=== PATIENT | male | born 1950 | race Caucasian/White ===

== ENCOUNTER → 2024-01-09 07:48 | Outpatient (REF) | payer MEDICARE, BC, SELFPAY ==
[2024-01-09 10:47] LABS: Magnesium 1.9 mg/dl (1.6-2.3)
[2024-01-09 11:15] LABS: TSH Reflex To Free T4 1.58 uIU/ml (0.47-4.68)
== END ==
LOC: HWLAB 07:48
PROVIDERS: ATTENDING PHYSICIAN Internal Medicine
DX: I48.91 Unspecified atrial fibrillation (principal)
CPT/HCPCS: 36415; 83735; 84443

== ENCOUNTER → 2024-01-29 10:13 | Outpatient (REF) | payer MEDICARE, BC, SELFPAY | LOC: HWRCS 10:13 | PROVIDERS: ATTENDING PHYSICIAN Internal Medicine Cardiovascular Disease; FAMILY PHYSICIAN Internal Medicine | DX: I48.0 Paroxysmal atrial fibrillation (principal) | CPT/HCPCS: 93306 ==

== ENCOUNTER → 2024-02-03 13:25 | Outpatient (REF) | payer MEDICARE, BC, SELFPAY | LOC: DHSLP 13:25 | PROVIDERS: ATTENDING PHYSICIAN Internal Medicine Cardiovascular Disease; FAMILY PHYSICIAN Internal Medicine | DX: G47.33 Obstructive sleep apnea (adult) (pediatric) (principal); G47.61 Periodic limb movement disorder | CPT/HCPCS: 95810 ==

== ENCOUNTER → 2024-02-21 08:04 | Outpatient (REF) | payer MEDICARE, BC, SELFPAY ==
[2024-02-21 09:33] LABS: % Basophils 0.7 % (0-2); % Eosinophils 6.6 % (0-6); % Immature Granulocytes 0.5 % (0-0.5); % Lymphocytes 15.2 % (20.5-51.1); % Monocytes 8.6 % (1.7-9.3); % Neutrophils 68.4 % (42.2-75.2); Absolute Basophils 0.1 10^3/uL (0-0.2); Absolute Eosinophils 0.6 10^3/uL (0-0.7); Absolute Lymphocytes 1.3 10^3/uL (1.2-3.4); Absolute Monocytes 0.7 10^3/uL (0.1-0.6); Absolute Neutrophils 5.8 10^3/uL (1.4-6.5); Hematocrit 42.4 % (39.0-52.0); Hemoglobin 14.9 g/dL (13.0-18.0); Mean Corp Hgb Conc. 35.1 g/dL (33.0-37.0); Mean Corpuscular Volume 85.3 fL (80.0-94.0); Mean Platelet Volume 10.5 fL (7.4-10.4); Nucleated Red Blood Cells % 0 % (-); Platelet Count 184 10^3/uL (130-400); Red Blood Cell Count 4.97 10^6/uL (4.70-6.10); Red Cell Dist. Width 12.4 % (11.5-14.5); White Blood Cell Count 8.4 10^3/uL (4.8-10.8)
[2024-02-21 09:39] LABS: Blood Urea Nitrogen 18 mg/dl (9-20); Carbon Dioxide 27 mmol/L (22-30); Chloride 104 mmol/L (98-107); Glucose 104 mg/dl (70-99); Potassium 4.5 mmol/L (3.5-5.1); Sodium 140 mmol/L (135-145); eGFR > 60.00
[2024-02-21 10:09] LABS: PSA, Total - Screen 4.84 ng/ml (0.0-4.0)
[2024-02-21 10:14] LABS: Erythrocyte Sed Rate 16 mm/hour (0-20)
== END ==
LOC: HWLAB 08:04
PROVIDERS: ATTENDING PHYSICIAN Internal Medicine Cardiovascular Disease; FAMILY PHYSICIAN Internal Medicine; REFERRING PHYSICIAN Specialist
DX: I47.19 Other supraventricular tachycardia (principal); I48.0 Paroxysmal atrial fibrillation; I10 Essential (primary) hypertension; E78.5 Hyperlipidemia, unspecified; Z12.5 Encounter for screening for malignant neoplasm of prostate
CPT/HCPCS: 36415; 80048; 85025; 85652; G0103

== ENCOUNTER → 2024-03-25 08:37 | Day surgery (SDC) | payer MEDICARE, BC, SELFPAY ==
--- NOTE | 2024-03-25 11:39 | ITS.CL.CARDI ---
Business Objects Developer - Cardioversion
Cardioversion
Procedure Report:
Date of Procedure: 03/25/24.
Procedure: Cardioversion.
Indication: Symptomatic atrial fibrillation.
Performing Physician: Mikayla Gunn MD
Technique: The patient was brought to the holding area. Signed informed consent was obtained. A time out was called and performed. The patient was sedated by a member of the anesthesia service. Anticoagulation status was reviewed and was
appropriate. R-2 pads were placed anteriorly and posteriorly. A 200 J synchronized biphasic shock restored normal sinus rhythm without significant bradycardia. There were no complications.
Conclusion: Uncomplicated cardioversion from atrial fibrillation to sinus rhythm.
Recommendation: Routine post cardioversion care. Continue press tender long goods anticoagulation.
cc: Dr. Barrios
== END ==
LOC: CATH 08:37
PROVIDERS: ATTENDING PHYSICIAN Internal Medicine Cardiovascular Disease; FAMILY PHYSICIAN Internal Medicine; OTHER PHYSICIAN Internal Medicine Cardiovascular Disease
DX: I48.91 Unspecified atrial fibrillation (principal); I49.1 Atrial premature depolarization; G47.33 Obstructive sleep apnea (adult) (pediatric); J45.909 Unspecified asthma, uncomplicated; Z79.01 Long term (current) use of anticoagulants
CPT/HCPCS: 92960; 93005

== ENCOUNTER → 2024-07-14 10:50 | Outpatient (REF) | payer MEDICARE, BC, SELFPAY ==
[2024-07-14 12:47] LABS: % Basophils 0.6 % (0-2); % Eosinophils 4.5 % (0-6); % Immature Granulocytes 0.3 % (0-0.5); % Lymphocytes 17.7 % (20.5-51.1); % Monocytes 8.5 % (1.7-9.3); % Neutrophils 68.4 % (42.2-75.2); Absolute Eosinophils 0.3 10^3/uL (0-0.7); Absolute Lymphocytes 1.1 10^3/uL (1.2-3.4); Absolute Monocytes 0.5 10^3/uL (0.1-0.6); Absolute Neutrophils 4.3 10^3/uL (1.4-6.5); Hematocrit 42.8 % (39.0-52.0); Hemoglobin 14.4 g/dL (13.0-18.0); Mean Corp Hgb Conc. 33.6 g/dL (33.0-37.0); Mean Corpuscular Hgb 29.8 pg (27.0-31.0); Mean Corpuscular Volume 88.4 fL (80.0-94.0); Mean Platelet Volume 11.3 fL (7.4-10.4); Nucleated Red Blood Cells % 0 % (-); Platelet Count 147 10^3/uL (130-400); Red Blood Cell Count 4.84 10^6/uL (4.70-6.10); White Blood Cell Count 6.3 10^3/uL (4.8-10.8)
[2024-07-14 13:12] LABS: Uric Acid 5.9 mg/dl (3.5-8.5)
[2024-07-14 13:39] LABS: Erythrocyte Sed Rate 8 mm/hour (0-20)
[2024-07-15 15:02] LABS: Lyme Antibody Screen, EIA Negative (Negative); Rheumatoid Agglutinin Less Than 10 IU (<10 IU)
[2024-07-16 20:20] LABS: ANA, IgG Reflex to HEp-2 None Detected (None Detected)
[2024-07-16 21:10] LABS: CCP Antibody IgG/IgA 2 Units (0-19)
== END ==
LOC: HWRAD 10:50
PROVIDERS: ATTENDING PHYSICIAN Internal Medicine
DX: M79.641 Pain in right hand (principal); M79.642 Pain in left hand; M25.60 Stiffness of unspecified joint, not elsewhere classified
CPT/HCPCS: 36415; 73130; 84550; 85025; 85652; 86038; 86140; 86200; 86430; 86618

== ENCOUNTER → 2024-08-28 08:26 | Outpatient (REF) | payer MEDICARE, BC, SELFPAY ==
[2024-08-28 10:56] LABS: PSA, Total - Diagnostic 3.71 ng/ml (0.0-4.0)
== END ==
LOC: HWLAB 08:26
PROVIDERS: ATTENDING PHYSICIAN Specialist; FAMILY PHYSICIAN Internal Medicine
DX: R97.20 Elevated prostate specific antigen [PSA] (principal)
CPT/HCPCS: 84153

== ENCOUNTER 2024-12-02 08:55 | Day surgery (SDC) | payer MEDICARE, BC, SELFPAY | END 2024-12-02 11:50 | disposition home or self-care (01) | LOC: CATH 08:55 | PROVIDERS: ATTENDING PHYSICIAN Internal Medicine Cardiovascular Disease; FAMILY PHYSICIAN Internal Medicine; OTHER PHYSICIAN Internal Medicine Cardiovascular Disease | DX: I48.0 Paroxysmal atrial fibrillation (principal); I47.19 Other supraventricular tachycardia; I10 Essential (primary) hypertension; E78.5 Hyperlipidemia, unspecified; Z86.73 Personal history of transient ischemic attack (TIA), and cerebral infarction without residual deficits; Z85.828 Personal history of other malignant neoplasm of skin; Z79.01 Long term (current) use of anticoagulants | CPT/HCPCS: 92960; 93005 ==

== ENCOUNTER → 2024-12-04 08:05 | Outpatient (REF) | payer MEDICARE, BC, SELFPAY ==
[2024-12-04 10:08] LABS: Hematocrit 41.3 % (39.0-52.0); Hemoglobin 13.7 g/dL (13.0-18.0); Mean Corp Hgb Conc. 33.2 g/dL (33.0-37.0); Mean Corpuscular Volume 90.0 fL (80.0-94.0); Nucleated Red Blood Cells % 0 % (-); Platelet Count 167 10^3/uL (130-400); Red Cell Dist. Width 12.3 % (11.5-14.5)
[2024-12-04 10:19] LABS: ALT (SGPT) 19 U/L (0-50); AST (SGOT) 27 U/L (17-59); Albumin 4.2 g/dl (3.5-5.0); Alkaline Phosphatase 75 U/L (38-126); Blood Urea Nitrogen 16 mg/dl (9-20); Calcium 8.7 mg/dl (8.4-10.2); Carbon Dioxide 27 mmol/L (22-30); Chloride 105 mmol/L (98-107); Glucose 95 mg/dl (70-99); Potassium 4.7 mmol/L (3.5-5.1); Sodium 139 mmol/L (135-145); Total Protein 6.8 g/dl (6.3-8.2); eGFR > 60.00
[2024-12-04 10:21] LABS: C-Reactive Protein 11.40 mg/L (0.0-10.00)
[2024-12-04 10:47] LABS: Hepatitis B Surface Antigen Negative (Negative)
[2024-12-04 11:05] LABS: Hepatitis C Antibody Negative (Negative)
== END ==
LOC: HWLAB 08:05
PROVIDERS: ATTENDING PHYSICIAN Student in an Organized Health Care Education/Training Program; FAMILY PHYSICIAN Internal Medicine
DX: M11.20 Other chondrocalcinosis, unspecified site (principal); M25.60 Stiffness of unspecified joint, not elsewhere classified; M79.89 Other specified soft tissue disorders; R79.82 Elevated C-reactive protein (CRP); Z11.1 Encounter for screening for respiratory tuberculosis; Z11.59 Encounter for screening for other viral diseases
CPT/HCPCS: 36415; 80053; 85025; 85652; 86140; 86480; 86704; 86705; 86803; 87340

== ENCOUNTER → 2025-01-04 11:46 | Outpatient (REF) | payer MEDICARE, BC, SELFPAY ==
[2025-01-06 22:51] LABS: HBV Quant by NAAT IU/mL Not Detected; HBV Quant by NAAT Interp Not Detected (Not Detected); HBV Quant by NAAT Log IU/mL Not Detected log IU/mL
== END ==
LOC: HWLAB 11:46
PROVIDERS: ATTENDING PHYSICIAN Student in an Organized Health Care Education/Training Program; FAMILY PHYSICIAN Internal Medicine
DX: B18.1 Chronic viral hepatitis B without delta-agent (principal)
CPT/HCPCS: 36415; 86706; 87517

== ENCOUNTER → 2025-01-06 12:57 | Outpatient (REF) | payer MEDICARE, BC, SELFPAY ==
[2025-01-06 13:34] LABS: Hematocrit 41.9 % (39.0-52.0); Hemoglobin 13.7 g/dL (13.0-18.0); Mean Corp Hgb Conc. 32.7 g/dL (33.0-37.0); Mean Corpuscular Volume 88.8 fL (80.0-94.0); Nucleated Red Blood Cells % 0 % (-); Platelet Count 145 10^3/uL (130-400); Red Cell Dist. Width 12.8 % (11.5-14.5)
[2025-01-06 13:44] LABS: INR 1.07; PT 14.4 Sec (11.4-14.6)
[2025-01-06 13:50] LABS: ALT (SGPT) 23 U/L (0-50); AST (SGOT) 22 U/L (17-59); Albumin 4.2 g/dl (3.5-5.0); Alkaline Phosphatase 75 U/L (38-126); Blood Urea Nitrogen 14 mg/dl (9-20); Calcium 8.9 mg/dl (8.4-10.2); Carbon Dioxide 32 mmol/L (22-30); Chloride 102 mmol/L (98-107); Glucose 109 mg/dl (70-99); Magnesium 1.8 mg/dl (1.6-2.3); Potassium 3.9 mmol/L (3.5-5.1); Sodium 139 mmol/L (135-145); Total Protein 6.9 g/dl (6.3-8.2); eGFR > 60.00
== END ==
LOC: SDSPAT 12:57
PROVIDERS: ATTENDING PHYSICIAN Internal Medicine Cardiovascular Disease; FAMILY PHYSICIAN Internal Medicine
DX: I48.0 Paroxysmal atrial fibrillation (principal)
CPT/HCPCS: 36415; 75572; 80053; 83735; 85025; 85610; 86850; 86900; 86901; 93005; Q9967

== ENCOUNTER 2025-01-28 06:09 | Day surgery (SDC) | payer MEDICARE, BC, SELFPAY ==
[2025-01-06 13:28] VITALS: BMI 29.9
[2025-01-28] VITALS (10 sets, daily range): BP systolic 140–180; BP diastolic 78–108; BMI 29.7
[2025-01-28] MEDS: TYLENOL 1000 MG PO (07:24)
[2025-01-28 08:46] LABS: ACT-LR - POC 377 Seconds (116-155)
[2025-01-28 09:05] LABS: ACT-LR - POC 319 Seconds (116-155)
[2025-01-28 09:32] LABS: ACT-LR - POC 313 Seconds (116-155)
[2025-01-28] MEDS: ZESTRIL 5 MG PO (10:48)
--- NOTE | 2025-01-28 12:00 | ITS.CL.ABL ---
Examination Grader - Ablation
Ablation
Procedure Report:
ELECTROPHYSIOLOGIC STUDY AND POSSIBLE ABLATION
DATE: January 28, 2025
Primary Care Provider: Dr Stormy Richardson
INDICATION:
Symptomatic Atrial Fibrillation and atrial tachycardia/flutter.
Persistent
HISTORY: See H and P.
Symptomatic AF, poorly controlled with attempted medical therapy
HAS-BLED: 2
Age
h/o CVA
CHADSVASc: 4
HTN
Age
CVA
h/o Stroke
PRESENTING RHYTHM: AF
HISTORY: See H and P.
Symptomatic AF, poorly controlled with attempted medical therapy.
ANTICOAGULATION: Apixaban 5 mg twice daily
'TIME-OUT': called and confirmed.
SEDATION/ANESTHESIA: provided via the anesthesia department using general anesthesia.
PROCEDURE:
Ultrasound Guidance with real-time visualization of needle insertion and vessel patency performed by de for femoral venous Vascular Access.
Under real-time US guidance, the needle was advanced with negative pressure into the vein. The needle was seen entering the vessel lumen with a good return of dark red flow, the syringe was removed, non-pulsatile, dark red blood low was noted and
the wire was passed without difficulty, then the needle was removed. US confirmed the wire was in the vein, not going into an artery,
Images were taken and saved for the patient's permanent record. Imaging findings typical femoral venous anatomy. Direct visualization of needle puncture into the femoral vein was observed and recorded.
3 sheaths were inserted into the right femoral vein.
10 Fr, 10Fr, 7 Fr a 10fr sheath was then exchanged for the 16.8 Fr Faradrive deflectable sheath and dilator over a wire.
A decapolar CS catheter was positioned within the CS for mapping and pacing.
The intracardiac ultrasound catheter was positioned in the RA for continuous intracardiac ultrasound imaging.
Heparin bolus and infusion to target ACT at 300 -350 seconds was administered. Transseptal puncture was performed. This entailed advancing a sheath with dilator into the superior vena cava and withdrawing both (monitoring intracardiac ultrasound,
fluoroscopy and tip pressure) with the tip oriented toward the atrial septum. The fossa ovalis was engaged (indicated by sudden displacement of the sheath tip as well as tenting of the fossa seen on intracardiac ultrasound).
The Farapulse transseptal system was used. Left atrial catheter position was confirmed by echocardiographic imaging and fluoroscopy followed by RF delivery using the Nafham system resulting in successful LA access with pressure monitoring
demonstrating LA pressure waveforms. The sheath was advanced over the dilator and positioned in the left atrium.
The Walter Grid multipolar mapping catheter was initially positioned through the transseptal sheath for high density mapping.
Geometry and voltage mapping was performed using the Walter multipolar grid catheter. Ensite-X was utilized for three-dimensional electroanatomical mapping.
A 3-D map was created using Ensite-X in Voxel mode. A 3-D reconstructed CT image was compared to the 3-D Navex map to assist in anatomic evaluation, mapping and ablation.
The FarapLibraryThing PFA catheter and system was used for cardiac ablation. Catheter positioning was guided and confirmed using both I.C.E. and fluoroscopy.
Ablation strategy included PVI as well as mapping for extra PV contributors to atrial fibrillation which would also be targeted if present.
High density electroanatomical three-dimensional mapping demonstrated three PVs: LSPV, LIPV, common right sided vein.
After accomplishing pulmonary venous isolation, mapping identified additional areas likely to be extra PV contributors to atrial fibrillation. These areas demonstrated patchy low voltage as well as complex fractionated electrograms. These areas can
be sites for the formation of rotors which can drive and maintain atrial fibrillation. These areas are known to be significant contributors to initiation and perpetuation of atrial fibrillation.
Additional energy applications/additional ablation sets targeted extra PV contributors to atrial fibrillation.
Targets for additional PFA ablation included:
LA posterior wall targeted with pulsed electric field energy isolating the posterior wall of the left atrium
After ablation of the posterior wall, additional targets were addressed:
LA inferior floor
These areas were ablated using pulsed electric field energy eliminating the extra PV contributors to atrial fibrillation.
Post ablation mapping finds entrance and exit block at each of the pulmonary veins, the LA posterior wall and at the additional lines at Inferior/floor of the LA rendering the sites no longer able to contribute to atrial fibrillation.
Programmed electrical stimulation is able to induce a regular atrial tachycardia with variable AV conduction.
Entrainment finds the left atrium to be outside the tachycardia circuit. Electroanatomic activation mapping of the left atrium also finds the left atrium to be passively activated from the right.
Electroanatomical activation mapping of the right atrium suggest a counterclockwise right atrial cavotricuspid isthmus circuit. Entrainment from the cavotricuspid isthmus finds that this is within the tachycardia circuit.
CTI flutter is diagnosed.
Intravenous pressors were administered to get systolic blood pressure above 150 mmHg.
200 mcg of nitroglycerin was administered
The Marilee pulse ablation catheter utilizing the flower position delivered pulsed electric field energy to the cavotricuspid isthmus at approximately 6�7:00 in the FARRAH 30 view. During energy delivery the tachycardia slowed and terminated. A full
ablation line from the tricuspid annulus down to the IVC was completed.
Next high density mapping was performed and differential pacing shows block at the ablation line.
I.C.E. :
Pre-Ablation Post-Ablation
LVEF: 55 % 55 %
WMA: none none
Pericardial effusion: nonen one]
COMPLICATIONS:
none
SUMMARY:
- Mapping and ablation to isolate the PVs resulting in electrical isolation of the pulmonary veins
- Additional AF ablation sets X 2 after PVI (LA posterior wall, Inf/floor of the LA posterior wall) resulting in elimination of the targeted extra PV contributors to atrial fibrillation.
- Mapping and ablation of second tachycardia
- 3-D Electroanatomical Mapping
- Intracardiac Ultrasound
- Ultrasound guidance for vascular access
Post ablation, I discussed today's findings and results with the patient's , Evelin.
RECOMMENDATIONS:
- Observe in monitored bed.
- Maintain oral anticoagulation.
- Discontinue flecainide
- Office visit with Lisa Delgado NP in 3 to 4 months
Copy to:
Dr Stormy Richardson
--- NOTE | 2025-01-28 14:09 | W.PN.UPDATE ---
Update Note
Progress Note Update
74 yo WM s/p PVI and CTI flutter ablation (Same day). He denies cp, sob, kymberly diet, voiding, amb w/o dizziness, EKG SR, R fem site c/d/i no HT. He will resume Eliquis tonight. He will stop flecainide and continue metoprolol. Activity restrictions
reviewed. He will f/u Dr. Ornelas in 3 mo. He is for d/c home after 230p.
== END 2025-01-28 14:30 | disposition home or self-care (01) ==
LOC: CATH 06:09
PROVIDERS: ATTENDING PHYSICIAN Internal Medicine Cardiovascular Disease; FAMILY PHYSICIAN Internal Medicine
DX: I48.19 Other persistent atrial fibrillation (principal); I10 Essential (primary) hypertension; I47.19 Other supraventricular tachycardia; E78.5 Hyperlipidemia, unspecified; I08.1 Rheumatic disorders of both mitral and tricuspid valves; J45.909 Unspecified asthma, uncomplicated; G47.33 Obstructive sleep apnea (adult) (pediatric); Z86.0100 Personal history of colon polyps, unspecified; G25.81 Restless legs syndrome; Z86.73 Personal history of transient ischemic attack (TIA), and cerebral infarction without residual deficits; N32.81 Overactive bladder; E55.9 Vitamin D deficiency, unspecified; R58 Hemorrhage, not elsewhere classified; Z79.899 Other long term (current) drug therapy; Z79.01 Long term (current) use of anticoagulants
CPT/HCPCS: C1766; C1732; C1894; C1769; C1730; 85347; 93005; 93655; 93656; 93657; C1733; C1892

== ENCOUNTER → 2025-04-08 09:42 | Outpatient (REF) | payer MEDICARE, BC, SELFPAY | LOC: PAVMRI 09:42 | PROVIDERS: ATTENDING PHYSICIAN Physical Medicine & Rehabilitation | DX: M25.552 Pain in left hip (principal) | CPT/HCPCS: 73721 ==